=== PATIENT | female | born 1960 | race Caucasian/White ===

== ENCOUNTER → 2021-02-25 | Outpatient (CLI) | payer BC ==
[~2021-02-25] MED LIST: Budeprion Xl300 MG; GABA400 PO; VENL37.5ER PO
== END | disposition home or self-care (01) ==
LOC: LAB 14:06 → LAB SHORT 14:06
DX: J02.9 Acute pharyngitis, unspecified (principal)
CPT/HCPCS: 87081

== ENCOUNTER 2022-08-22 20:59 | Emergency (ER) | payer BC ==
[~2022-08-22] VITALS: Ht 172.7 cm; Wt 86.2 kg
[2022-08-22] MEDS ORDERED: Percocet 5-3251 EACH PO (23:41)
[2022-08-22] MEDS ORDERED: ONDA4 PO (23:41)
== END 2022-08-23 01:10 | disposition home or self-care (01) ==
LOC: ER 20:59
DX: S42.291A Other displaced fracture of upper end of right humerus, initial encounter for closed fracture (principal); S42.211A Unspecified displaced fracture of surgical neck of right humerus, initial encounter for closed fracture; W18.09XA Striking against other object with subsequent fall, initial encounter; Z88.2 Allergy status to sulfonamides
CPT/HCPCS: 73030; 73070; 96374; 96375; 99284-25; A9270; J1170; J2405; J7030

== ENCOUNTER 2022-09-05 10:55 | Day surgery (SDC) | payer BC ==
[~2022-09-05] VITALS: Ht 175.3 cm; Wt 87.0 kg
[2022-09-05] VITALS (10 sets, daily range): BP systolic 117–156; BP diastolic 66–90
[~2022-09-05 10:55] MED LIST changes: -Budeprion Xl300 MG; +Budeprion Xl300 MG PO; +ESCI20 PO; +ONDA4 PO; +Percocet 5-3251 EACH PO
[2022-09-05] MEDS ORDERED: Acetaminophen650 M1 PO (11:24)
--- NOTE | 2022-09-05 12:05 | NUR ---
Ambulatory in Day Surgery. Surgical site prepped with 2% Chlorhexidine cloth wipe. History, Chart, Medications and Allergies reviewed before start of procedure. Lungs clear T/O to Auscultation. Patient REPORTS TO HAVE DRANK COFFEE WITH CREAMER AT 0700. DR KENT NOTIFIED AND AGREED TO PROCEED WITH PROCEDURE. Pre-Op teaching done. Pt verbalizes understanding.
--- NOTE | 2022-09-05 13:30 | NUR ---
09/05/22 2620 OH DEWEY PT RECEIVED BLOCK TO OPSITE AREA PERFORMED BY ANESTHESIA PRIOR TO OR PROCEDURE.
--- NOTE | 2022-09-05 17:12 | NUR ---
RECIEVED REPORT FROM Reese, THIS RN ASSUMING CARE OF PT AT THIS TIME.
--- NOTE | 2022-09-05 17:49 | NUR ---
PT UP TO BATHROOM WITH FEMALE RN.
--- NOTE | 2022-09-05 18:00 | NUR ---
PT BACK TO BED. REPORTS THAT SHE WAS ABLE TO VOID. PT REQ TO WAIT UNTIL HER GETS HERE UNTIL SHE GETS DRESSED. Patient up to Ambulate independently. Gait steady.
--- NOTE | 2022-09-05 18:35 | NUR ---
Patient up to Ambulate independently. Gait steady. Discharge instructions reviewed with patient. Patient verbalizes understanding. Copy given to patient to take home. Patient States Post-Procedure ride home has been arranged. Discharged via wheelchair to private car for ride home. PT REPORTED THAT PAIN MEDICATION WAS TO BE SENT ELECTRONICALLY, WENT TO GET IT BUT REPORTED THAT HE WAS UNABLE TO DUE TO [employer] HAVING A GLITCH IN THEIR SYSTEM. DR ROME NOTIFIED WHO CAME BACK IN AND WROTE A SCRIPT FOR THEM. PT/ GIVEN SCRIPT AND OTHER PAPERWORK, WELL ICE BAG.
== END 2022-09-05 18:35 | disposition home or self-care (01) ==
LOC: ORSCMMR 10:55
PROVIDERS: Orthopaedic Surgery
PROC: 0PSF04Z Reposition Right Humeral Shaft with Internal Fixation Device, Open Approach (ICD-10-PCS; principal; 2022-09-05 12:30)
DX: S42.211A Unspecified displaced fracture of surgical neck of right humerus, initial encounter for closed fracture (principal)
CPT/HCPCS: A9270; C1713; J0171; J0690; J1100; J1885; J2250; J2370; J2405; J2704; J3010; J7120